=== PATIENT | male | born 2000 | race Asian ===

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

== ENCOUNTER 2023-01-18 16:32 | Emergency (ER) | payer BC ==
[~2023-01-18] VITALS: Ht 185.4 cm; Wt 95.5 kg
[2023-01-18 16:41] VITALS: TEMP 97.9
[2023-01-18 16:52] LABS: BASO # 0.1 K/mm3 (0.0-0.2); BASO % 1.2 % (0.0-2.0); EOS # 0.3 K/mm3 (0.0-0.7); EOS % 2.5 % (0.0-4.0); GRAN # 5.7 K/mm3 (1.4-6.5); HEMATOCRIT 51.8 % (36.0-47.0); HEMOGLOBIN 16.7 g/dl (12.5-16.1); MEAN CELL VOLUME 79 fl (80.0-95.0); MEAN CORPUSCULAR HEMOGLOBIN 26 pg (26-32); MEAN CORPUSCULAR HGB CONC 32 g/dl (33.0-37.0); MEAN PLATELET VOLUME 9.1 fl (7.4-10.4); MONO # 0.8 K/mm3 (0.1-0.6); MONO % 7.5 % (1.7-9.3); PLATELET COUNT 413 K/mm3 (130-400); RED BLOOD COUNT 6.54 M/mm3 (4.20-5.60); REDCELL DISTRIBUTION WIDTH-CV 13.1 % (11.5-14.5)
[2023-01-18 17:13] LABS: ALBUMIN 4.2 gm/dL (3.5-5.0); CALCIUM 9.7 mg/dL (8.4-10.2); CREATININE, serum 1.59 mg/dL (0.72-1.25); POTASSIUM 3.8 mmol/L (3.5-4.5)
[2023-01-18] MEDS ORDERED: VYVANSE70 MG PO (17:15)
[2023-01-18] MEDS ORDERED: KEPPRA 500MG500 MG PO (20:17)
[2023-01-18 20:28] VITALS: BP 137/79; PULSE 89
== END 2023-01-18 20:28 | disposition home or self-care (01) ==
LOC: COL.ER 16:32
PROVIDERS: Emergency Medicine
DX: R56.9 Unspecified convulsions (principal); R79.89 Other specified abnormal findings of blood chemistry; R74.02 Elevation of levels of lactic acid dehydrogenase [LDH]
CPT/HCPCS: J7030; J7120